=== PATIENT | male | born 1985 | race Caucasian/White ===

== ENCOUNTER 2017-06-19 10:27 | Emergency (ER) | payer SELFPAY ==
[2017-06-19] MEDS ORDERED: Sodium Chloride 0.9% 1,000 ML IV ONE (10:33)
[2017-06-19] MEDS ORDERED: Ketorolac 30 MG/ML SDV IVPUSH ONE (10:33)
[2017-06-19] MEDS ORDERED: Sodium Chloride 0.9% 10 ML Syringe FLUSH PRN (10:33)
[2017-06-19] MEDS ORDERED: Ondansetron 4 MG/2 ML SDV IVPUSH ONE (10:33)
[2017-06-19] MEDS ORDERED: LORazepam 2 MG/ML SDV IVPUSH ONE (10:33)
--- NOTE | 2017-06-19 11:47 | EDM.PDOCBH ---
ED HPI GENERAL MEDICAL PROBLEM - General Chief Complaint: Drug or Alcohol Abuse Stated Complaint: [facility] Time Seen by Provider: 06/19/17 10:33 Source of Information: Reports: Patient History Limitations: Reports: No Limitations - History of Present Illness INITIAL COMMENTS - FREE TEXT/NARRATIVE: The patient is a 32-year-old male with a chief complaint of chest pain. He has been at [facility] for he talks from methamphetamines. He states he had fairly sudden onset of substernal chest pain. There was no provoking factor. The pain is sharp. It has been constant. It was severe at its worst, seems to be improving. He also feels short of breath. He has some radiation of the pain to his left arm and jaw area. No history of similar symptoms previously. He also complains of some numbness and tingling around his mouth. No lower extremity pain or swelling. No recent travel or immobilization. No fever, cough, recent illness. No vomiting. States that his last meth use was about 2 days ago. Denies additional drug or alcohol use. Left Chest Pain Score (Numeric/FACES): 1 - Related Data Allergies Allergy/AdvReac Type Severity Reaction Status Date / Time acetaminophen [From Lortab] Allergy Itching Verified 06/02/16 21:24 CDT hydrocodone [From Lortab] Allergy Itching Verified 06/02/16 21:24 CDT Home Meds: Home Meds Doxycycline [Vibramycin] 100 mg PO Q12HR #14 cap 06/04/16 [Rx] Ondansetron [Zofran ODT] 4 mg SL Q4H PRN 06/19/17 [History] cloNIDine HCl [Clonidine HCl ER] 0 mg PO BID 06/19/17 [History] Past Medical History Gastrointestinal History: Reports: GERD, Hiatal Hernia, Other (See Below) Other Gastrointestinal History: takes no meds for heartburn. States had part of stomach removed due to enlarged stomach, hiatal hernia. Musculoskeletal History: Reports: Fracture Psychiatric History: Reports: Addiction, Anxiety, Depression Other Psychiatric History: meth use via IV - Infectious Disease History Infectious Disease History: Reports: Chicken Pox Social & Family History - Tobacco Use Smoking Status *Q: Current Every Day Smoker Years of Tobacco use: 13 Packs/Tins Daily: 0.5 Second Hand Smoke Exposure: Yes - Caffeine Use Caffeine Use: Reports: Soda - Recreational Drug Use Recreational Drug Use: Yes Drug Use in Last 12 Months: Yes Recreational Drug Type: Reports: Methamphetamine Recreational Drug Use Frequency: Daily ED ROS GENERAL - Review of Systems Review Of Systems: See Below Constitutional: Denies: Fever HEENT: Reports: No Symptoms Respiratory: Reports: Shortness of Breath Cardiovascular: Reports: Chest Pain Endocrine: Reports: No Symptoms GI/Abdominal: Denies: Abdominal Pain Musculoskeletal: Reports: No Symptoms Neurological: Reports: No Symptoms Psychiatric: Reports: Anxiety ED EXAM, BEHAVIORAL HEALTH - Physical Exam Exam: See Below Exam Limited By: No Limitations General Appearance: Alert, Anxious, Moderate Distress Eye Exam: Bilateral Eye: Normal Inspection Ears: Normal External Exam Nose: Normal Inspection Throat/Mouth: Normal Inspection, Normal Oropharynx, Normal Voice, No Airway Compromise Head: Atraumatic, Normocephalic Neck: Normal Inspection, Supple, Non-Tender, Full Range of Motion Respiratory/Chest: No Respiratory Distress, Lungs Clear, Normal Breath Sounds, Chest Non-Tender Cardiovascular: Normal Peripheral Pulses, Regular Rate, Rhythm, No Edema, No Murmur GI/Abdominal: Soft, Non-Tender, No Distention. No: Rebound Back Exam: Normal Inspection Extremities: Normal Inspection, No Pedal Edema Neurological: Alert, Normal Mood/Affect, CN II-XII Intact, Normal Cognition, No Motor/Sensory Deficits, Oriented x 3 Psychiatric: Alert, Normal Cognition, Oriented Skin Exam: Warm, Dry, Intact, Normal color, No rash COURSE, BEHAVIORAL HEALTH COMP - Course Vital Signs: Last Vital Signs Temp 37.0 C 06/19/17 10:27 Pulse 74 06/19/17 13:50 Resp 18 06/19/17 13:50 BP 122/77 06/19/17 13:50 Pulse Ox 100 06/19/17 13:50 Orders, Labs, Meds: Active Orders 24 hr Category Date Time Status EKG 12 Lead [EKG Documentation Completion] [RC] STAT Care 06/19/17 10:33 Active Peripheral IV Care [RC] . DIRECTED Care 06/19/17 10:34 Active Chest 1V Frontal [CR] Stat Exams 06/19/17 10:33 Taken Peripheral IV Insertion Adult [OM.PC] Routine Oth 06/19/17 10:33 Ordered Laboratory Tests 06/19/17 06/19/17 Range/Units 10:35 10:35 WBC 8.10 (4.23-9.07) K/mm3 RBC 5.32 (4.63-6.08) M/mm3 Hgb 14.8 (13.7-17.5) gm/L Hct 43.3 (40.1-51.0) % MCV 81.4 (79.0-92.2) fl MCH 27.8 (25.7-32.2) pg MCHC 34.2 (32.2-35.5) g/dl RDW Std Deviation 36.8 (35.1-43.9) fL Plt Count 242 (163-337) K/mm3 MPV 9.7 (9.4-12.3) fl Neut % (Auto) 61.2 (34.0-67.9) % Lymph % (Auto) 29.4 (21.8-53.1) % [place] % (Auto) 8.4 (5.3-12.2) % Eos % (Auto) 0.7 L (0.8-7.0) Baso % (Auto) 0.2 (0.1-1.2) % Neut # (Auto) 4.95 (1.78-5.38) K/mm3 Lymph # (Auto) 2.38 (1.32-3.57) K/mm3 [place] # (Auto) 0.68 (0.30-0.82) K/mm3 Eos # (Auto) 0.06 (0.04-0.54) K/mm3 Baso # (Auto) 0.02 (0.01-0.08) K/mm3 Manual Slide Review Normal smear Sodium 141 (136-145) mEq/L Potassium 4.3 (3.5-5.1) mEq/L Chloride 103 (98-107) mEq/L Carbon Dioxide 26 (21-32) mEq/L Anion Gap 16.3 H (5-15) BUN 11 (7-18) mg/dL Creatinine 1.0 (0.7-1.3) mg/dL Est Cr Clr Drug Dosing 118.74 mL/min Estimated GFR (MDRD) > 60 (>60) mL/min BUN/Creatinine Ratio 11.0 L (14-18) Glucose 84 (74-106) mg/dL Calcium 9.6 (8.5-10.1) mg/dL Total Bilirubin 0.2 (0.2-1.0) mg/dL AST 28 (15-37) U/L ALT 101 H (16-63) U/L Alkaline Phosphatase 74 (46-116) U/L Troponin I < 0.017 (0.00-0.056) ng/mL Total Protein 8.6 H (6.4-8.2) g/dl Albumin 3.7 (3.4-5.0) g/dl Globulin 4.9 gm/dL Albumin/Globulin Ratio 0.8 L (1-2) Medications Discontinued Medications Generic Name Dose Route Start Last Admin Trade Name Freq PRN Reason Stop Dose Admin Sodium Chloride 1,000 mls @ 1,000 mls/hr 06/19/17 10:33 06/19/17 11:00 Normal Saline IV 06/19/17 11:32 1,000 mls/hr ONETIME ONE Administration Ketorolac Tromethamine 30 mg 06/19/17 10:33 06/19/17 11:06 Toradol IVPUSH 06/19/17 10:34 30 mg ONETIME ONE Administration Lorazepam 1 mg 06/19/17 10:33 06/19/17 11:04 Ativan IVPUSH 06/19/17 10:34 1 mg ONETIME ONE Administration Ondansetron HCl 4 mg 06/19/17 10:33 06/19/17 11:01 Zofran IVPUSH 06/19/17 10:34 4 mg ONETIME ONE Administration Sodium Chloride 10 ml 06/19/17 10:33 06/19/17 10:40 Saline Flush FLUSH 10 ml ASDIRECTED PRN Administration Keep Vein Open Re-Assessment/Re-Exam: EKG shows normal sinus rhythm, no significant ST/T-wave abnormality, no evidence of acute ischemia. Chest x-ray shows normal cardiac silhouette, no pneumothorax or infiltrate, no acute abnormality. Labs including troponin are within normal limits. Patient felt much better after milligram of Ativan. His chest pain ceased and he had no further shortness of breath. His symptoms have completely resolved and he would like to go home. Departure - Departure Time of Disposition: 11:50 Disposition: Home, Self-Care 01 Clinical Impression: Chest pain Qualifiers: Chest pain type: unspecified Qualified Code(s): R07.9 - Chest pain, unspecified - Discharge Information Instructions: Nonspecific Chest Pain, [id number] Referrals: PCP,None [Primary Care Provider] - Additional Instructions: 1. Your testing in the ED including labs, EKG, and chest x-ray were all normal. There was no definite explanation for your episode of chest pain. 2. Follow up with a regular doctor in approximately 1 week for further care. 3. Return to the ED if you have chest pain, difficulty breathing, or other concerning symptoms. - My Orders Last 24 Hours: My Active Orders 06/19/17 10:33 EKG 12 Lead [EKG Documentation Completion] [RC] STAT Chest 1V Frontal [CR] Stat Peripheral IV Insertion Adult [OM.PC] Routine 06/19/17 10:34 Peripheral IV Care [RC] . DIRECTED - Assessment/Plan Last 24 Hours: My Active Orders 06/19/17 10:33 EKG 12 Lead [EKG Documentation Completion] [RC] STAT Chest 1V Frontal [CR] Stat Peripheral IV Insertion Adult [OM.PC] Routine 06/19/17 10:34 Peripheral IV Care [RC] . DIRECTED
[2017-06-19 13:54] VITALS: BP 122/77
--- NOTE | 2017-06-20 10:20 | CR ---
Chest: Frontal view of the chest was obtained. Comparison: No prior chest x-ray. Heart size and mediastinum are normal. Lungs are clear. Bony structures are grossly intact. Impression: 1. Nothing acute is identified on frontal chest x-ray. Diagnostic code #1
== END 2017-06-19 13:50 | disposition home or self-care (01) ==
LOC: JD.ED 10:27 → MERGE 10:27 → JD.ED 13:50
DX: R07.9 Chest pain, unspecified (principal); F17.210 Nicotine dependence, cigarettes, uncomplicated; K21.9 Gastro-esophageal reflux disease without esophagitis; Z88.5 Allergy status to narcotic agent; Z88.6 Allergy status to analgesic agent
CPT/HCPCS: 36415; 71045; 80053; 84484; 85025; 93005; 96361; 96374; 96375; 99285; J1885; J2060; J2405; J7040; J7050; 93010; 99284-25